=== PATIENT | male | born 1945 | race Caucasian/White ===

== ENCOUNTER 2017-11-01 15:48 | Outpatient (CLI) | payer MEDICARE, OTHER ==
[~2017-11-01 15:48] MED LIST: AMLO5TAB4 PO; ASPI-807 PO; CLOP75TA15 PO; DUTA1CPM PO; FENO135C4 PO; FERR325T29 PO; NEBI5TAB8 PO; ROSU20TA PO; VALS320T2 PO
[2018-04-12] MEDS ORDERED: ERGO500014 PO (08:10)
[2018-04-12] MEDS ORDERED: EDARBYCLOR PO (08:10)
[2018-04-12] MEDS ORDERED: FAMO-131 PO (08:10)
[2018-04-12] MEDS ORDERED: DILT240C53 PO (08:10)
[2018-04-12] MEDS ORDERED: FEBU40TA PO (08:10)
[2018-04-12] MEDS ORDERED: CLON0.1T PO (08:10)
[2018-04-12] MEDS ORDERED: FURO-145 PO (08:10)
[2018-04-12] MEDS ORDERED: FENO160T PO (08:10)
== END 2017-11-01 23:59 | disposition home or self-care (01) ==
LOC: MRI 15:48
DX: M19.071 Primary osteoarthritis, right ankle and foot (principal); M79.89 Other specified soft tissue disorders
CPT/HCPCS: 73718-TC

== ENCOUNTER 2017-11-08 12:23 | Emergency (ER) | payer OTHER, MEDICARE ==
[~2017-11-08] VITALS: Ht 165.1 cm; Wt 72.6 kg
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
[2017-11-08 13:29] VITALS: BP 191/89
--- NOTE | 2017-11-08 13:29 | NUR ---
Patient discharged to home in stable condition. Written and verbal after care instructions given. Patient verbalizes understanding of instruction. pt ambulatory with a steady gait VITAL SIGNS WITHIN NORMAL LIMITS.
[2018-04-12] MEDS ORDERED: FEBU40TA PO (08:10)
[2018-04-12] MEDS ORDERED: ERGO500014 PO (08:10)
[2018-04-12] MEDS ORDERED: EDARBYCLOR PO (08:10)
[2018-04-12] MEDS ORDERED: DILT240C53 PO (08:10)
[2018-04-12] MEDS ORDERED: FENO160T PO (08:10)
[2018-04-12] MEDS ORDERED: FURO-145 PO (08:10)
[2018-04-12] MEDS ORDERED: CLON0.1T PO (08:10)
[2018-04-12] MEDS ORDERED: FAMO-131 PO (08:10)
== END 2017-11-08 13:44 | disposition home or self-care (01) ==
LOC: ER 12:25
DX: S16.1XXA Strain of muscle, fascia and tendon at neck level, initial encounter (principal); I10 Essential (primary) hypertension; Z95.5 Presence of coronary angioplasty implant and graft; Z79.82 Long term (current) use of aspirin; V43.52XA Car driver injured in collision with other type car in traffic accident, initial encounter; Y93.89 Activity, other specified; Y92.413 State road as the place of occurrence of the external cause; Y99.8 Other external cause status
CPT/HCPCS: 72040-TC; A4606; Z7610

== ENCOUNTER 2019-08-13 10:59 | Emergency (ER) | payer MEDICARE, OTHER ==
[~2019-08-13] VITALS: Ht 160 cm; Wt 86.2 kg
[~2019-08-13 10:59] MED LIST changes: -AMLO5TAB4 PO; -ASPI-807 PO; +CLON0.1T PO; +DILT240C53 PO; -DUTA1CPM PO; +ERGO500014 PO; +FAMO-131 PO; +FEBU40TA PO; -FENO135C4 PO; +FENO160T PO; -FERR325T29 PO; +FURO-145 PO; -ROSU20TA PO; +ROSU20TA2 PO; -VALS320T2 PO
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
[2019-08-13 12:32] VITALS: BP 117/87
--- NOTE | 2019-08-13 12:50 | NUR ---
Patient discharged to home in stable condition. Written and verbal after care instructions given. Patient verbalizes understanding of instruction.
== END 2019-08-13 12:51 | disposition home or self-care (01) ==
LOC: ER 11:00
DX: S83.8X2A Sprain of other specified parts of left knee, initial encounter (principal); I10 Essential (primary) hypertension; Z98.890 Other specified postprocedural states; Z79.899 Other long term (current) drug therapy; W18.39XA Other fall on same level, initial encounter; Y93.89 Activity, other specified; Y92.89 Other specified places as the place of occurrence of the external cause; Y99.8 Other external cause status
CPT/HCPCS: 73564-TC

== ENCOUNTER 2019-10-05 17:10 | Emergency (ER) | payer MEDICARE, OTHER ==
[~2019-10-05] VITALS: Ht 157.5 cm; Wt 87.1 kg
--- NOTE | 2019-10-05 17:20 | NUR ---
[id number] FRM HOME C/O LIGHTHEADED AND HEADACHE. PT STATES HYPERTENSIVE SINCE 1030 IN THE MORNING. PATIENT A/OX4, BREATHING EVEN AND UNLABORED, NO SOB NOTED, CHANGED INTO GOWN, ATTACHED TO THE REAL ESTATE SALESPERSON. NO DISTRESS NOTED.
[2019-10-05 18:07] LABS: BASOPHILS % (AUTO) 0.4 % (0.0-2.0); EOSINOPHILS % (AUTO) 6.6 % (0.0-6.0); HEMATOCRIT 36 % (39-51); HEMOGLOBIN 11.9 g/dL (13.5-17.5); LYMPHOCYTES # (AUTO) 1.5 /CMM (0.8-4.8); LYMPHOCYTES % (AUTO) 30.4 % (20.0-44.0); MEAN CORPUSCULAR HGB CONC 33 g/dl (31.0-36.0); MEAN CORPUSCULAR VOLUME 94 fL (80-96); MONOCYTES # (AUTO) 0.4 /CMM (0.1-1.30); MONOCYTES % (AUTO) 8.8 % (2.0-12.0); NEUTROPHILS # (AUTO) 2.7 /CMM (1.8-8.9); NEUTROPHILS % (AUTO) 53.8 % (43.0-81.0); PLATELET COUNT (AUTO) 161 /CMM (150-450); RED BLOOD CELL COUNT(AUTO) 3.79 MIL/uL (4.5-6.0)
[2019-10-05 18:37] LABS: CALCIUM, SERUM 8.9 mg/dL (8.5-10.1); CARBON DIOXIDE 28 mmol/L (21-32); CHLORIDE 106 mmol/L (98-107); CREATININE 1.8 mg/dL (0.6-1.3); GLUCOSE 93 mg/dL (74-106); POTASSIUM 4.2 mmol/L (3.5-5.1); SODIUM SERUM 143 mmol/L (136-145); UREA NITROGEN, BLOOD 40 mg/dL (7-18)
--- NOTE | 2019-10-05 18:37 | NUR ---
PATIENT'S BLOOD PRESSURE 180/110, MD AWARE. PER MD HE WANTS TO WAIT FOR CT RESULT.
[2019-10-05 18:54] LABS: ALANINE AMINOTRANSFERASE 25 U/L (12-78); ALBUMIN 3.3 g/dL (3.4-5.0); ALKALINE PHOSPHATASE 43 U/L (46-116); ASPARTATE AMINOTRANSFERASE 24 U/L (15-37); B-TYPE NATRIURETIC PEPTIDE 639 PG/ML (0-125); BILIRUBIN,DIRECT 0.1 mg/dL (0.0-0.2); BILIRUBIN,TOTAL 0.3 mg/dL (0.2-1.0); TOTAL PROTEIN, SERUM 6.8 g/dL (6.4-8.2)
[2019-10-05] MEDS ORDERED: hydrALAZINE HCL IV 20 MG VIAL ONE (19:02)
--- NOTE | 2019-10-05 19:11 | NUR ---
PATIENT RESTING, NO DISTRESS NOTED. NEEDS ATTENDED.
--- NOTE | 2019-10-05 19:20 | NUR ---
REPORT REC'D FROM MERCED JASON FOR LAURA.
--- NOTE | 2019-10-05 19:20 | NUR ---
DR. NINO AT BEDSIDE FOR EVAL.
[2019-10-05] MEDS ORDERED: hydrALAZINE HCL IV 20 MG VIAL IV ONE (19:30)
[2019-10-05] MEDS ORDERED: ACETAMINOPHEN 325 MG TABLET ONE (19:32)
--- NOTE | 2019-10-05 19:37 | NUR ---
VERBAL ORDER FOR TYLENOL 650 MG PO GIVEN BY [address] NINO. PT IS C/O HEADACHE.
--- NOTE | 2019-10-05 19:46 | NUR ---
REPORT GIVEN TO MERCED WORLEY FOR LAURA.
[2019-10-05] MEDS ORDERED: ACETAMINOPHEN 325 MG TABLET PO ONE (20:00)
--- NOTE | 2019-10-05 20:02 | NUR ---
IV removed. Catheter intact and site benign. Pressure and 4x4 applied to site. No bleeding noted. Patient discharged to home in stable condition. Written and verbal after care instructions given. Patient verbalizes understanding of instruction. PT'S FAMILY IS AT THE BEDSIDE AND IS TAKING THE PT HOME. VSS. PT WAS TOLD TO GET UP FROM THE BED SLOWLY. PT IS TO F/U WITH HIS PMD AND COST ACCOUNTANT. PT AMBULATED OUT WITH A STEADY GAIT.
[2019-10-05 20:04] VITALS: BP 165/94
== END 2019-10-05 20:05 | disposition home or self-care (01) ==
LOC: ER 17:11
DX: I10 Essential (primary) hypertension (principal); D64.9 Anemia, unspecified; I25.10 Atherosclerotic heart disease of native coronary artery without angina pectoris; E78.5 Hyperlipidemia, unspecified; Z95.1 Presence of aortocoronary bypass graft; Z95.5 Presence of coronary angioplasty implant and graft; Z95.0 Presence of cardiac pacemaker; Z86.718 Personal history of other venous thrombosis and embolism; Z98.890 Other specified postprocedural states; Z79.899 Other long term (current) drug therapy
CPT/HCPCS: 36415; 70450; 71045; 80048; 80076; 83880; 84484; 85025; 85730; 93005; 96374; 99285; J0360